=== PATIENT | female | born 1995 | race Caucasian/White ===

== ENCOUNTER → 2020-01-26 | Outpatient (CLI) | payer SELFPAY | LOC: M LABSMTC 09:40 | PROVIDERS: ATTEND Pediatrics | DX: Z20.828 Contact with and (suspected) exposure to other viral communicable diseases (principal) ==

== ENCOUNTER → 2020-08-20 | Outpatient (CLI) | payer BC ==
--- NOTE | 2020-08-20 10:30 | REP ---
INDICATION: PAIN. COMPARISON: Comparison left foot radiographs November 09, 2012.. TECHNIQUE: Four views of the left ankle are provided. FINDINGS: Ankle mortise is intact. There is periarticular swelling laterally and anteriorly about the ankle. No fracture or subluxation is seen. Study is otherwise unremarkable. IMPRESSION: Moderate anterolateral swelling. No fracture seen. <Electronically signed by Dimitry Foley > 08/20/20 1025
== END ==
LOC: M WUC 10:09
PROVIDERS: ATTEND Nurse Practitioner Family
DX: M25.572 Pain in left ankle and joints of left foot (principal)

== ENCOUNTER 2021-03-04 05:32 | Emergency (ER) | payer BC ==
[~2021-03-04] VITALS: Ht 157.5 cm; Wt 61.4 kg
[2021-03-04] MEDS ORDERED: AMOX875T PO (05:39)
[2021-03-04] MEDS ORDERED: diphenhydrAMINE 50MG/ML VIAL (J1200) IV STA (05:55)
[2021-03-04] MEDS ORDERED: FAMOTIDINE IV BAG 20 MG in IV 1 EA IV ONE (05:55)
[2021-03-04] MEDS ORDERED: methylPREDNISolone 125MG 2ML VIAL IV ONE (05:55)
[2021-03-04] MEDS ORDERED: FAMO20TA PO (06:44)
[2021-03-04] MEDS ORDERED: CETI10CH PO (06:44)
[2021-03-04] MEDS ORDERED: PRED20TA PO (06:44)
[2021-03-04 07:50] VITALS: BP 107/57
== END 2021-03-04 07:52 | disposition home or self-care (01) ==
LOC: M ED 05:32
DX: T78.2XXA Anaphylactic shock, unspecified, initial encounter (principal); R21 Rash and other nonspecific skin eruption
CPT/HCPCS: 96365; 96375; 99284; J1200; J2930

== ENCOUNTER → 2021-03-14 | Outpatient (CLI) | payer BC ==
[~2021-03-14] MED LIST: AMOX875T PO; CETI10CH PO; FAMO20TA PO; PRED20TA PO
[2021-03-14 16:51] LABS: BASO # 0.1 10^3/uL (0.0-0.2); BASO % 1.1 % (0.0-1.0); EOS # 0.1 10^3/uL (0.0-0.5); EOS % 1.1 % (0.0-3.0); HEMATOCRIT 40.9 % (36.0-47.0); HEMOGLOBIN 13.5 g/dl (12.0-15.5); LYMPH # 3.3 10^3/uL (1.5-5.0); LYMPH % 44.6 % (24.0-44.0); MONO # 0.5 10^3/uL (0.0-0.8); MONO % 6.7 % (2.0-8.0); NEUTROPHILS # 3.4 10^3/uL (1.5-8.5); NEUTROPHILS % 46.1 % (36.0-66.0); PLATELET COUNT, AUTOMATED 388 10^3/uL (150-450); RED BLOOD COUNT 4.65 10^6/uL (4.00-5.40); WHITE BLOOD COUNT 7.3 10^3/uL (4.0-10.0)
[2021-03-14 17:22] LABS: MONO REFLEX EBV COMP POSITIVE (NEGATIVE)
[2021-03-14 17:39] LABS: FERRITIN 54 NG/ML (8-252); FOLATE > 24.0 NG/ML; FREE T4 0.87 NG/DL (0.76-1.46); IRON (FE) 134 UG/DL (50-170); PERCENT SATURATION 26.5 % (13.2-45.0); TOTAL IRON BINDING CAPACITY 506 UG/DL (250-450); VITAMIN B12 LEVEL 397 PG/ML
== END ==
LOC: M ADAMS 15:07
PROVIDERS: ATTEND Family Medicine
DX: R53.83 Other fatigue (principal)